=== PATIENT | female | born 1965 | race Caucasian/White ===

== ENCOUNTER 2016-08-20 13:27 | Emergency (ER) | payer OTHER ==
[~2016-08-20] VITALS: Ht 162.6 cm; Wt 56.7 kg
[~2016-08-20 13:27] MED LIST: IBUP-2213 PO; MULT-46 PO
[2016-08-20 13:51] VITALS: BP 108/72
--- NOTE | 2016-08-20 13:52 | NUR ---
PATIENT PRESENTS TO ED WITH C/O LEFT KNEE PAIN . PT STATES SHE SLIPPED ON A WATER SLIDE LAST NOC AND HAS SEVERE PAIN SINCE THAT TIME . DENIES N/V/D; SKIN IS PINK/WARM/DRY; AAOX4 WITH EVEN AND STEADY GAIT; LUNGS CLEAR BL; HR EVEN AND REGULAR; PT DENIES ANY FEVER, CP, SOB, OR COUGH AT THIS TIME; PATIENT STATES PAIN OF 8/10 AT THIS TIME; VSS; PATIENT POSITIONED FOR COMFORT; HOB ELEVATED; BEDRAILS UP X2; BED DOWN. ER MD MADE AWARE OF PT STATUS.
--- NOTE | 2016-08-20 13:54 | NUR ---
Dori HUGHES PTCarolyn
[2016-08-20 14:10] VITALS: BP 108/72
== END 2016-08-20 14:10 | disposition home or self-care (01) ==
LOC: MED 13:27
DX: S83.92XA Sprain of unspecified site of left knee, initial encounter (principal); Z88.0 Allergy status to penicillin; Z88.6 Allergy status to analgesic agent; Z88.8 Allergy status to other drugs, medicaments and biological substances; X58.XXXA Exposure to other specified factors, initial encounter; Y93.89 Activity, other specified; Y92.89 Other specified places as the place of occurrence of the external cause; Y99.8 Other external cause status
CPT/HCPCS: 29505; 99283

== ENCOUNTER 2016-08-28 07:44 | Outpatient (CLI) | payer OTHER | END 2016-08-28 20:38 | disposition home or self-care (01) | LOC: MRD 07:44 | PROVIDERS: ATTEND Family Medicine | DX: Z01.818 Encounter for other preprocedural examination (principal); M25.562 Pain in left knee | CPT/HCPCS: 73562 ==

== ENCOUNTER 2017-05-18 10:11 | Emergency (ER) | payer OTHER ==
[~2017-05-18] VITALS: Ht 162.6 cm; Wt 54.4 kg
[2017-05-18 10:19] VITALS: BP 115/50
[2017-05-18] MEDS ORDERED: KETOROLAC 30 MG/ML VIAL IM ONE (10:45)
[2017-05-18] MEDS ORDERED: ACETAMINOPHEN EXTRA STRENGTH 500 MG TAB PO ONE (11:05)
[2017-05-18 11:42] VITALS: BP 97/64
== END 2017-05-18 11:43 | disposition home or self-care (01) ==
LOC: MED 10:11
DX: J11.1 Influenza due to unidentified influenza virus with other respiratory manifestations (principal); K58.9 Irritable bowel syndrome, unspecified; Z88.0 Allergy status to penicillin; Z88.5 Allergy status to narcotic agent; Z88.8 Allergy status to other drugs, medicaments and biological substances
CPT/HCPCS: 36415; 71045; 87804; 99285; Q0092; J1885

== ENCOUNTER 2018-09-22 23:09 | Emergency (ER) | payer OTHER ==
[~2018-09-22] VITALS: Ht 162.6 cm; Wt 55.8 kg
[2018-09-22 23:13] VITALS: BP 108/66
--- NOTE | 2018-09-22 23:19 | NUR ---
SEEN AND EXAMINED BY DR. MOREJON
[2018-09-22 23:53] VITALS: BP 108/66
--- NOTE | 2018-09-22 23:53 | NUR ---
Patient discharged with v/s stable. Written and verbal after care instructions given and explained BY DR. MOREJON, Patient alert, oriented and verbalized understanding of instructions. Ambulatory with steady gait. All questions addressed prior to discharge. ID band removed. Patient advised to follow up with PMD. Rx of KEFLEX given. Patient educated on indication of medication including possible reaction and side effects. Opportunity to ask questions provided and answered.
== END 2018-09-22 23:53 | disposition home or self-care (01) ==
LOC: MED 23:09
DX: S91.332A Puncture wound without foreign body, left foot, initial encounter (principal); L03.116 Cellulitis of left lower limb; Z88.0 Allergy status to penicillin; Z88.5 Allergy status to narcotic agent; Z88.6 Allergy status to analgesic agent; Z88.8 Allergy status to other drugs, medicaments and biological substances; Z79.1 Long term (current) use of non-steroidal anti-inflammatories (NSAID); Z79.899 Other long term (current) drug therapy; W22.09XA Striking against other stationary object, initial encounter; Y93.89 Activity, other specified; Y92.89 Other specified places as the place of occurrence of the external cause; Y99.8 Other external cause status
CPT/HCPCS: 99283

== ENCOUNTER 2019-01-30 07:08 | Emergency (ER) | payer OTHER ==
[~2019-01-30] VITALS: Ht 162.6 cm; Wt 55.8 kg
[2019-01-30 07:38] VITALS: BP 96/65
--- NOTE | 2019-01-30 07:45 | NUR ---
PATIENT AMBULATED STEADY GAIT TO BED 4.
[2019-01-30] MEDS: IBUPROFEN 600 MG TAB PO ONE (08:11)
--- NOTE | 2019-01-30 08:11 | NUR ---
PT WAS SEEN BY EDMD, ARCADIO GIVEN FOR PAIN. PT TOLERATED WELL. Patient discharged with v/s stable. Written and verbal after care instructions given and explained. Patient verbalized understanding. Ambulatory with steady gait. All questions addressed prior to discharge. Advised to follow up with PMD.
[2019-01-30 08:13] VITALS: BP 124/75
== END 2019-01-30 08:13 | disposition home or self-care (01) ==
LOC: MED 07:08
DX: S39.012A Strain of muscle, fascia and tendon of lower back, initial encounter (principal); Z79.899 Other long term (current) drug therapy; Z88.5 Allergy status to narcotic agent; Z88.0 Allergy status to penicillin; Z88.8 Allergy status to other drugs, medicaments and biological substances; V89.2XXA Person injured in unspecified motor-vehicle accident, traffic, initial encounter; Y93.89 Activity, other specified; Y92.89 Other specified places as the place of occurrence of the external cause; Y99.8 Other external cause status
CPT/HCPCS: 99282

== ENCOUNTER 2019-08-08 20:59 | Emergency (ER) | payer OTHER ==
[~2019-08-08] VITALS: Ht 157.5 cm; Wt 55.8 kg
[2019-08-08 21:03] VITALS: BP 105/66
--- NOTE | 2019-08-08 21:08 | NUR ---
PT WALKED TO LOBBY WITH STEADY GAIT.
--- NOTE | 2019-08-08 21:15 | NUR ---
PT TAKEN TO XRAY VIA W/C.
--- NOTE | 2019-08-08 21:40 | NUR ---
PT RETURNED TO LOBBY FROM XRAY VIA W/C.
--- NOTE | 2019-08-08 21:49 | NUR ---
PT TAKEN TO CH A VIA W/C.
--- NOTE | 2019-08-08 21:50 | NUR ---
PT RECIVED WOUND CARE BY EMT. EMT APPLIED ALESSANDRO TAPE TO 2ND AND 3RD DIGIT ON L FOOT. CMS INTACT. CAP REFILL <3.
[2019-08-08 22:15] VITALS: BP 105/66
--- NOTE | 2019-08-08 22:15 | NUR ---
Patient discharged with v/s stable. Written and verbal after care instructions given and explained. Patient verbalized understanding. Ambulatory with steady gait. All questions addressed prior to discharge. Advised to follow up with PMD.
== END 2019-08-08 22:15 | disposition home or self-care (01) ==
LOC: MED 20:59
DX: S92.512A Displaced fracture of proximal phalanx of left lesser toe(s), initial encounter for closed fracture (principal); Z88.0 Allergy status to penicillin; Z88.6 Allergy status to analgesic agent; Z88.8 Allergy status to other drugs, medicaments and biological substances; Z79.899 Other long term (current) drug therapy; W26.8XXA Contact with other sharp object(s), not elsewhere classified, initial encounter; Y93.89 Activity, other specified; Y92.89 Other specified places as the place of occurrence of the external cause; Y99.8 Other external cause status
CPT/HCPCS: 73630; 99283

== ENCOUNTER 2019-08-14 12:11 | Emergency (ER) | payer OTHER ==
[~2019-08-14] VITALS: Ht 154.9 cm; Wt 54.9 kg
[2019-08-14 12:27] VITALS: BP 102/56
--- NOTE | 2019-08-14 12:30 | NUR ---
53 y/f presents to ed for l foot injury follow up. pt bumped toe into couch sunday night, was deemed to return back to work but unable to, requesting work extentsion and xr. no visible edema or erythema noted, pedal pulse 2+ pmh- denies rx- vitamins
--- NOTE | 2019-08-14 13:00 | NUR ---
pt taken to xr.
[2019-08-14 13:38] VITALS: BP 102/56
== END 2019-08-14 13:38 | disposition home or self-care (01) ==
LOC: MED 12:11
DX: S92.512A Displaced fracture of proximal phalanx of left lesser toe(s), initial encounter for closed fracture (principal); W22.8XXA Striking against or struck by other objects, initial encounter; Y93.89 Activity, other specified; Y92.89 Other specified places as the place of occurrence of the external cause; Y99.8 Other external cause status; Z88.0 Allergy status to penicillin; Z88.5 Allergy status to narcotic agent
CPT/HCPCS: 73660; 99283

== ENCOUNTER 2019-09-03 15:25 | Emergency (ER) | payer OTHER, SELFPAY ==
[~2019-09-03] VITALS: Ht 162.6 cm; Wt 55.3 kg
[2019-09-03 15:54] VITALS: BP 109/60
--- NOTE | 2019-09-03 16:07 | NUR ---
53 Y/O FEMALE FROM HOME C/O FEVER, SEVERE H/A, SORETHROAT, AND FATIGUE X 2 DAYS. INCREASED PAIN WHEN SWALLOWING. 5/10 ACHING AT THIS TIME. TOOK TYLENOL AT 0500. RR EVEN AND UNLABORED. VSS
[2019-09-03 16:34] VITALS: BP 109/60
--- NOTE | 2019-09-03 16:34 | NUR ---
COVID-19 SWAB COLLECTED FROM PT
--- NOTE | 2019-09-10 16:24 | NUR ---
POSITIVE RESULT OF COVID RECEIVED FROM LAB. INFETION CONTROL DEPT WILL CONTACT PATIENT.
== END 2019-09-03 16:34 | disposition home or self-care (01) ==
LOC: MED 15:25
DX: U07.1 COVID-19 (principal); R50.9 Fever, unspecified; J02.9 Acute pharyngitis, unspecified; Z88.0 Allergy status to penicillin; Z88.6 Allergy status to analgesic agent; Z98.86 Personal history of breast implant removal; Z79.899 Other long term (current) drug therapy; Z87.59 Personal history of other complications of pregnancy, childbirth and the puerperium
CPT/HCPCS: 99283; U0003; 99282

== ENCOUNTER 2020-01-04 11:41 | Emergency (ER) | payer OTHER ==
[~2020-01-04] VITALS: Ht 162.6 cm; Wt 54.9 kg
[2020-01-04 11:48] VITALS: BP 114/60
[2020-01-04] MEDS ORDERED: IBUPROFEN 400 MG TAB PO ONE (12:25)
[2020-01-04] MEDS ORDERED: ACETAMINOPHEN 325 MG TAB PO ONE (12:25)
--- NOTE | 2020-01-04 12:54 | NUR ---
PATIENT TAKEN TO XRAY AT THIS TIME.
[2020-01-04 13:52] VITALS: BP 118/64
== END 2020-01-04 13:53 | disposition home or self-care (01) ==
LOC: MED 11:41
DX: S13.9XXA Sprain of joints and ligaments of unspecified parts of neck, initial encounter (principal); M54.5 Low back pain; Z88.0 Allergy status to penicillin; Z88.5 Allergy status to narcotic agent; Z88.6 Allergy status to analgesic agent; Z79.899 Other long term (current) drug therapy; V49.9XXA Car occupant (driver) (passenger) injured in unspecified traffic accident, initial encounter; Y93.89 Activity, other specified; Y92.89 Other specified places as the place of occurrence of the external cause; Y99.8 Other external cause status
CPT/HCPCS: 72040; 72110; 99284

== ENCOUNTER 2020-05-27 00:05 | Emergency (ER) | payer OTHER ==
[~2020-05-27] VITALS: Ht 162.6 cm; Wt 56.2 kg
[2020-05-27 00:12] VITALS: BP 115/80
[2020-05-27] MEDS ORDERED: DOXYCYCLINE 100 MG CAP ONE (01:14)
[2020-05-27] MEDS ORDERED: DOXY100C59 PO (01:26)
[2020-05-27] MEDS ORDERED: NEOMYCIN/POLYMYXIN/BACITRACIN OIN 15 GM TUBE TP ONE (01:35)
[2020-05-27 01:42] VITALS: BP 115/80
[2020-05-27] MEDS ORDERED: DOXYCYCLINE 100 MG CAP PO SCH (09:00)
== END 2020-05-27 01:44 | disposition home or self-care (01) ==
LOC: MED 00:05
DX: S61.451A Open bite of right hand, initial encounter (principal); Z88.0 Allergy status to penicillin; Z88.5 Allergy status to narcotic agent; Z88.8 Allergy status to other drugs, medicaments and biological substances; Z79.899 Other long term (current) drug therapy; W54.0XXA Bitten by dog, initial encounter; Y93.89 Activity, other specified; Y92.89 Other specified places as the place of occurrence of the external cause; Y99.8 Other external cause status
CPT/HCPCS: 73130; 90471; 90715; 99283

== ENCOUNTER 2020-06-28 12:04 | Emergency (ER) | payer OTHER ==
[~2020-06-28] VITALS: Ht 162.6 cm; Wt 55.8 kg
[~2020-06-28 12:04] MED LIST changes: +DOXY100C59 PO
[2020-06-28 12:08] VITALS: BP 125/50
--- NOTE | 2020-06-28 12:10 | NUR ---
PATIENT AMBULATED TO LOBBY WITH STEADY GAIT
--- NOTE | 2020-06-28 12:46 | NUR ---
PATIENT AMBULATED TO BED 11
--- NOTE | 2020-06-28 12:54 | NUR ---
54 Y/O FEMALE FROM HOME C/O LEFT HAND PAIN S/P DOG BITE AROUND 1130. 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 PT STATES SHE REACHED DOWN TO GRAB HER DOG WHEN STRAY DOG BIT HAND. PUNCTURE WOUND NOTED TO PATIENTS LEFT HAND. STATES 10/10 RADIATING PAIN. BLEEDING CONTROLLED AT THIS TIME. VSS MEDHX: DENIES
--- NOTE | 2020-06-28 12:56 | NUR ---
DR RODRIGUEZ AT BEDSIDE EXAMINING PATIENT
--- NOTE | 2020-06-28 14:20 | NUR ---
X-Ray at bedside.
[2020-06-28] MEDS: ACETAMINOPHEN 325 MG TAB PO ONE (14:23)
[2020-06-28] MEDS: LIDOCAINE 2% 1000 MG/50 ML VIAL INJ ONE (14:24)
[2020-06-28] MEDS ORDERED: DOXY-487 PO (14:39)
--- NOTE | 2020-06-28 14:44 | NUR ---
PT HAND SOAKING IN IODINE SOLUTION.
--- NOTE | 2020-06-28 15:00 | NUR ---
Dr. Matthew at bedside for laceration repair.
[2020-06-28] MEDS: BACITRACIN OINT 500 UNITS/GM PKT TP ONE (15:37)
[2020-06-28 15:38] VITALS: BP 125/50
== END 2020-06-28 15:37 | disposition home or self-care (01) ==
LOC: MED 12:04
DX: S61.451A Open bite of right hand, initial encounter (principal); Z88.0 Allergy status to penicillin; Z88.1 Allergy status to other antibiotic agents; Z88.5 Allergy status to narcotic agent; W54.0XXA Bitten by dog, initial encounter; Y93.89 Activity, other specified; Y92.89 Other specified places as the place of occurrence of the external cause; Y99.8 Other external cause status
CPT/HCPCS: 12002; 73130; 99283; J2001

== ENCOUNTER 2020-06-30 19:39 | Emergency (ER) | payer OTHER ==
[~2020-06-30] VITALS: Ht 162.6 cm; Wt 55.3 kg
[~2020-06-30 19:39] MED LIST changes: +DOXY-487 PO
[2020-06-30 19:41] VITALS: BP 112/63
--- NOTE | 2020-06-30 19:41 | NUR ---
to bed ambulatory
--- NOTE | 2020-06-30 19:45 | NUR ---
BIB SELF 54 F, AAOX4, ON ROOM AIR, AMBULATORY, C/O ALLERGIC REACTION, NO HX, ALLERGIC TO OPIOIDS AND PCN, SAFETY MEASURES IN PLACE.
[2020-06-30] MEDS ORDERED: SULF-59 PO (20:08)
[2020-06-30] MEDS ORDERED: CLIN150C1 PO (20:08)
[2020-06-30] MEDS: CLINDAMYCIN 150 MG CAP PO ONE ×2 (20:23→20:24)
[2020-06-30] MEDS: SULFAMETH/TRIMETH DS 800/160MG 1 TAB PO ONE (20:24)
--- NOTE | 2020-06-30 20:28 | NUR ---
DUE MEDS GIVEN ORDERED, TOLERATED WELL.
[2020-06-30 20:38] VITALS: BP 112/63
--- NOTE | 2020-06-30 20:38 | NUR ---
Patient discharged with v/s stable. Written and verbal after care instructions given and explained. Patient alert, oriented and verbalized understanding of instructions. Ambulatory with steady gait. All questions addressed prior to discharge. ID band removed. Patient advised to follow up with PMD. Rx of CLEOCIN AND BACTRIM given. Patient educated on indication of medication including possible reaction and side effects. Opportunity to ask questions provided and answered.
== END 2020-06-30 20:38 | disposition home or self-care (01) ==
LOC: MED 19:39
DX: T78.40XA Allergy, unspecified, initial encounter (principal); Z88.0 Allergy status to penicillin; Z88.5 Allergy status to narcotic agent; Z79.899 Other long term (current) drug therapy; X58.XXXA Exposure to other specified factors, initial encounter
CPT/HCPCS: 99284

== ENCOUNTER 2021-09-21 15:21 | Outpatient (CLI) | payer OTHER ==
[~2021-09-21 15:21] MED LIST changes: +CLIN150C1 PO; +DOXY-565 PO; -DOXY100C59 PO; +SULF-59 PO
== END 2021-09-21 21:20 | disposition home or self-care (01) ==
LOC: MRD 15:21
DX: Z01.818 Encounter for other preprocedural examination (principal)
CPT/HCPCS: 71046

== ENCOUNTER 2021-09-22 20:24 | Outpatient (CLI) | payer OTHER ==
[2021-09-22 22:02] LABS: APPEARANCE,URINE CLEAR (CLEAR); BILIRUBIN,URINE NEGATIVE (NEGATIVE); BLOOD, URINE NEGATIVE (NEGATIVE); COLOR,URINE YELLOW (YELLOW); LEUKOCYTE ESTERASE ,URINE 1+ (NEGATIVE); NITRITE, URINE NEGATIVE (NEGATIVE); PH,URINE 7.5 (5.0-9.0); UGLUCOSE NEGATIVE (NEGATIVE)
[2021-09-22 22:10] LABS: RBC,URINE 0-5 /HPF (0-5)
[2021-09-22 22:11] LABS: OTHER CASTS, URINE None Seen /LPF (None Seen)
[2021-09-22 22:23] LABS: BASOPHILS # (AUTO) 0.1 K/uL (0.00-0.22); BASOPHILS % (AUTO) 1.3 % (0.0-2.0); EOSINOPHILS # (AUTO) 0.3 K/uL (0-0.4); EOSINOPHILS % (AUTO) 3.3 % (0.0-4.0); HEMATOCRIT 39.5 % (36-48); HEMOGLOBIN 13.2 g/dL (12.0-16.0); LYMPHOCYTES # (AUTO) 2.5 K/uL (2.5-16.5); LYMPHOCYTES % (AUTO) 28.8 % (20.5-51.1); MEAN CORPUSCULAR HEMOGLOBIN 31 pg (27-31); MEAN CORPUSCULAR HGB CONC 33 g/dL (33-37); MEAN CORPUSCULAR VOLUME 91.7 fL (80-94); MONOCYTES # (AUTO) 0.7 K/uL (0.8-1.0); MONOCYTES % (AUTO) 8.3 % (1.7-9.3); NEUTROPHILS % (AUTO) 58.3 % (42.2-75.2); PLATELET COUNT (AUTO) 320 K/uL (140-450); RED BLOOD CELL COUNT(AUTO) 4.31 MIL/uL (4.20-5.40); WHITE BLOOD COUNT (AUTO) 8.6 K/uL (4.8-10.8)
[2021-09-22 22:39] LABS: PROTHROMBIN TIME 10.3 secs (10.8-13.4)
[2021-09-22 22:49] LABS: ALBUMIN 3.9 g/dL (3.4-5.0); ANION GAP 10.4 (8-16); CHOL/HDL RATIO 2.2 (1-4.5); CREATININE 0.8 mg/dL (0.6-1.3); POTASSIUM 3.4 mmol/L (3.5-5.1); THYROID STIMULATING HORMONE 0.78 uIU/mL (0.34-3.74); TOTAL BILIRUBIN 0.2 mg/dL (0.0-1.0)
[2021-09-24 07:07] LABS: FOLLICLE STIMULATING HORMONE 81.5 mIU/mL (.); LUTEINIZING HORMONE 42.4 mIU/mL (.); T4 (THYROXINE) 6.3 ug/dL (4.5-12.0)
== END 2021-09-22 23:59 | disposition home or self-care (01) ==
LOC: MLB 20:24
DX: Z01.810 Encounter for preprocedural cardiovascular examination (principal); N95.8 Other specified menopausal and perimenopausal disorders; Z20.822 Contact with and (suspected) exposure to COVID-19
CPT/HCPCS: 36415; 80053; 80061; 81001; 83001; 83002; 83036; 84436; 84443; 84702; 85025; 85610; 85730; 86702; 87086; 87635; C9803

== ENCOUNTER 2022-05-29 13:47 | Emergency (ER) | payer OTHER ==
[~2022-05-29] VITALS: Ht 162.6 cm; Wt 56.7 kg
[~2022-05-29 13:47] MED LIST changes: -DOXY-565 PO; +DOXY-745 PO
[2022-05-29 15:24] VITALS: BP 120/85
[2022-05-29] MEDS ORDERED: ACETAMINOPHEN EXTRA STRENGTH 500 MG TAB PO ONE (17:20)
--- NOTE | 2022-05-29 18:19 | NUR ---
SHORT THUMB FROG SPLINT APPLIED TO L THUMB. + CMS
--- NOTE | 2022-05-29 19:27 | NUR ---
Attempted to locate pt in [facility] for d/c; unable to locate.
== END 2022-05-29 19:27 | disposition home or self-care (01) ==
LOC: MED 13:47
DX: S63.682A Other sprain of left thumb, initial encounter (principal); M75.22 Bicipital tendinitis, left shoulder; Z88.0 Allergy status to penicillin; Z88.8 Allergy status to other drugs, medicaments and biological substances; Z79.899 Other long term (current) drug therapy; X58.XXXA Exposure to other specified factors, initial encounter; Y93.89 Activity, other specified; Y92.89 Other specified places as the place of occurrence of the external cause; Y99.8 Other external cause status
CPT/HCPCS: 73140; 99283

== ENCOUNTER 2022-07-03 14:04 | Emergency (ER) | payer OTHER ==
[~2022-07-03] VITALS: Ht 167.6 cm; Wt 57.2 kg
[2022-07-03 14:40] VITALS: BP 108/59
--- NOTE | 2022-07-03 14:44 | NUR ---
AJ Addendum: 07/03/22 at 1444 by [email or web address] AMB. TO BED 6. NO ACUTE DISTRESS
[2022-07-03] MEDS ORDERED: ACETAMINOPHEN 325 MG TAB PO ONE (14:55)
--- NOTE | 2022-07-03 14:57 | NUR ---
X-Ray at bedside.
--- NOTE | 2022-07-03 15:03 | NUR ---
56 Y/O FEMALE BIB SELF, PT STATES SHE WAS PLAYING TUG OF WAR YESTERDAY AND FELT HER TOES TWIST THE OTHER WAY. 7/10 PAIN AT THIS TIME. NO OBVIOUS DEFORMITIES, ABRASION OR LACS NOTED AT THIS TIME. PMH: DENIES ALLERGY: MORPHINE, PENICILLIN
[2022-07-03] MEDS ORDERED: BACITRACIN OINT 500 UNITS/GM PKT TP ONE (15:15)
[2022-07-03] MEDS ORDERED: BACI-416 TP (15:16)
[2022-07-03 16:00] VITALS: BP 108/59
== END 2022-07-03 16:00 | disposition home or self-care (01) ==
LOC: MED 14:04
DX: S93.501A Unspecified sprain of right great toe, initial encounter (principal); Z88.0 Allergy status to penicillin; Z88.8 Allergy status to other drugs, medicaments and biological substances; Z79.899 Other long term (current) drug therapy; Z88.5 Allergy status to narcotic agent; X58.XXXA Exposure to other specified factors, initial encounter; Y93.89 Activity, other specified; Y92.89 Other specified places as the place of occurrence of the external cause; Y99.8 Other external cause status
CPT/HCPCS: 73660; 99283

== ENCOUNTER 2022-11-17 15:55 | Emergency (ER) | payer OTHER ==
[~2022-11-17] VITALS: Ht 162.6 cm; Wt 56.2 kg
[~2022-11-17 15:55] MED LIST changes: +BACI-418 TP
[2022-11-17 16:52] VITALS: BP 109/68; PULSE 63; RESP 18; TEMP 97.9; O2SAT 100
[2022-11-17] MEDS ORDERED: IBUPROFEN 400 MG TAB PO ONE (17:05)
== END 2022-11-17 17:50 | disposition home or self-care (01) ==
LOC: MED 15:55
DX: S63.502A Unspecified sprain of left wrist, initial encounter (principal); Z79.2 Long term (current) use of antibiotics; Z79.899 Other long term (current) drug therapy; Z79.1 Long term (current) use of non-steroidal anti-inflammatories (NSAID); Z88.5 Allergy status to narcotic agent; Z88.0 Allergy status to penicillin; Z88.6 Allergy status to analgesic agent; Z88.8 Allergy status to other drugs, medicaments and biological substances; X58.XXXA Exposure to other specified factors, initial encounter; Y92.89 Other specified places as the place of occurrence of the external cause; Y93.89 Activity, other specified; Y99.0 Civilian activity done for income or pay
CPT/HCPCS: 73110; 99283